=== PATIENT | male | born 1985 | race African-American/Black ===

== ENCOUNTER 2025-01-14 22:44 | Emergency (ER) | payer OTHER ==
[~2025-01-14] VITALS: Ht 177.8 cm; Wt 121.4 kg
[2025-01-15] MEDS: IBUPROFEN 800 MG TAB PO ONE (05:38)
[2025-01-15] MEDS ORDERED: IBUP600T42 PO (06:50)
[2025-01-15 08:02] VITALS: BP 151/88; TEMP 97.4; O2SAT 98
== END 2025-01-15 08:04 | disposition home or self-care (01) ==
LOC: EDBD 22:44 → M ED 22:44
DX: S40.012A Contusion of left shoulder, initial encounter (principal); S70.02XA Contusion of left hip, initial encounter; Y92.9 Unspecified place or not applicable; Y93.9 Activity, unspecified; Y99.9 Unspecified external cause status; V40.5XXA Car driver injured in collision with pedestrian or animal in traffic accident, initial encounter; Z79.1 Long term (current) use of non-steroidal anti-inflammatories (NSAID)

== ENCOUNTER 2025-02-24 03:54 | Emergency (ER) | payer OTHER ==
[~2025-02-24] VITALS: Ht 177.8 cm; Wt 122.8 kg
[~2025-02-24 03:54] MED LIST: IBUP600T42 PO
[2025-02-24 05:23] LABS: BASO # 0.0 10^3/uL (0.0-0.2); BASO % 0.2 % (0.0-1.0); EOS # 0.1 10^3/uL (0.0-0.5); EOS % 2.3 % (0.0-3.0); LYMPH # 1.4 10^3/uL (1.5-5.0); LYMPH % 30.1 % (24.0-44.0); MONO # 0.9 10^3/uL (0.0-0.8); MONO % 18.3 % (2.0-8.0); NEUTROPHILS # 2.3 10^3/uL (1.5-8.5); NEUTROPHILS % 48.9 % (36.0-66.0); PLATELET COUNT, AUTOMATED 245 10^3/uL (150-450)
[2025-02-24 05:59] LABS: ALT/SGPT 56 U/L (7.0-40); AST/SGOT 65 U/L (<34); CALCIUM LEVEL 8.1 MG/DL (8.5-10.1); CARBON DIOXIDE LEVEL 25 MMOL/L (20-31); CHLORIDE LEVEL 105 MMOL/L (98-107); CK-MB VALUE MASS 2.3 NG/ML (<3.6); CPK CREATINE PHOSPHOKINASE 692 U/L (46-171); CREATININE FOR GFR 1.09 MG/DL (0.70-1.30); GLOMERULAR FILTRATION RATE 89.7 (>60); MB/CK RELATIVE INDEX 0.33 (< OR =4); POTASSIUM SERUM 6.0 MMOL/L (3.5-5.1); SODIUM LEVEL 138 MMOL/L (136-145)
[2025-02-24] MEDS ORDERED: ISOVUE-370 76% 100 ML VIAL As Ordered ONE (07:00)
[2025-02-24 07:03] LABS: CK-MB VALUE MASS 1.8 NG/ML (<3.6)
[2025-02-24 07:06] LABS: CPK CREATINE PHOSPHOKINASE 689 U/L (46-171); MB/CK RELATIVE INDEX 0.26 (< OR =4)
[2025-02-24] MEDS: ONDANSETRON 4MG/2ML VIAL IV ONE (07:29)
[2025-02-24] MEDS: PANTOPRAZOLE 40MG VIAL IV ONE (07:29)
[2025-02-24] MEDS: MORPHINE 4 MG/ML 1 ML VIAL IV ONE (07:30)
[2025-02-24] MEDS: NS (Normal Saline) 0.9% 1,000 ML IV ONE (07:30)
[2025-02-24] MEDS: SUCRALFATE SUSP 1GM/10ML UD PO ONE (08:51)
[2025-02-24] MEDS ORDERED: ONDA-282 PO (09:36)
[2025-02-24] MEDS ORDERED: PROT20TA11 PO (09:36)
[2025-02-24 10:23] VITALS: BP 112/57; TEMP 97.5; O2SAT 95
== END 2025-02-24 10:26 | disposition home or self-care (01) ==
LOC: M ED 03:54
DX: R11.2 Nausea with vomiting, unspecified (principal); R19.7 Diarrhea, unspecified; Z79.1 Long term (current) use of non-steroidal anti-inflammatories (NSAID); Z79.899 Other long term (current) drug therapy
CPT/HCPCS: 71045; 71275; 74177; 80048; 80076; 82550; 82553; 83690; 84132; 84484; 85025; 93005; 93041; 94760; 96361; 96374; 96375; 99285; J2405; J2470; Q9967